=== PATIENT | male | born 1965 | race African-American/Black ===

== ENCOUNTER 2020-09-20 01:19 | Emergency (ER) | payer MEDICAID ==
[~2020-09-20] VITALS: Ht 185.4 cm; Wt 75.0 kg
[2020-09-20 02:15] VITALS: BP 145/77
[2020-09-20] MEDS ORDERED: IV NORMAL SALINE 1000ML BAG 1,000 ML IV ONE (02:30)
--- NOTE | 2020-09-20 02:51 | PHYS DOC ---
Past Medical History Past Medical History: Alcoholism, Diabetes-Type II Smoking Status: Current Every Day Smoker General Adult EDM: Chief Complaint: DIZZY/LIGHT HEADED HPI: HPI: Patient is a 54 year old male who is a chief complaint of dizziness. Patient had some dizziness 2 days ago and his caretakers were concerned and sent him in for evaluation. Patient denies any current dizziness. Patient states he has been out of his insulin for a week or so. Patient denies any nausea vomiting or recent illnesses. Patient does have a chronic cough due to smoking. Patient has had alcohol intake today and usually drinks 2 beers per day. Review of Systems: Review of Systems: Constitutional: Denies fever or chills. [] Eyes: Denies change in visual acuity. [] HENT: Denies nasal congestion or sore throat. [] Respiratory: Patient has a chronic cough but no shortness of breath. [] Cardiovascular: Denies chest pain or edema. [] GI: Denies abdominal pain, nausea, vomiting, bloody stools or diarrhea. [] : Denies dysuria. [] Musculoskeletal: Denies back pain or joint pain. [] Integument: Denies rash. [] Neurologic: Denies headache, focal weakness or sensory changes. [] Patient had dizziness 2 days ago but none today Endocrine: Denies polyuria or polydipsia. [] Lymphatic: Denies swollen glands. [] Psychiatric: Denies depression or anxiety. [] Heart Score: Risk Factors: Risk Factors: DM, Current or recent (<one month) smoker, HTN, HLP, family history of CAD, obesity. Risk Scores: Score 0 - 3: 2.5% MACE over next 6 weeks - Discharge Home Score 4 - 6: 20.3% MACE over next 6 weeks - Admit for Clinical Observation Score 7 - 10: 72.7% MACE over next 6 weeks - Early Invasive Strategies Current Medications: Current Medications Medications (Trade) Dose Ordered Sig/Archana Start Time Stop Time Status Last Admin Dose Admin Sodium Chloride 1,000 ml @ 1,000 mls/hr 1X ONCE 09/20/20 02:30 09/20/20 03:29 UNV Allergies: Allergies: Allergies Coded Allergies Type Severity Reaction Last Updated Verified citric acid Allergy Unknown 09/20/20 Yes Physical Exam: PE: Constitutional: Well developed, well nourished, no acute distress, non-toxic appearance. [] HENT: Normocephalic, atraumatic, bilateral external ears normal, no trismus nose normal. [] Eyes: PERRLA, EOMI, conjunctiva normal, no discharge. [] Horizontal nystagmus present Neck: Normal range of motion, no tenderness, supple, no stridor. [] Cardiovascular:Heart rate regular rhythm, peripheral pulses intact cap refill is brisk Lungs & Thorax: Bilateral breath sounds clear, no respiratory distress Abdomen: soft, no tenderness, no masses, no pulsatile masses. [] Skin: Warm, dry, no erythema, no rash. [] Back: No tenderness, no CVA tenderness. [] Extremities: No tenderness, no cyanosis, no clubbing, ROM intact, no edema. [] Neurologic: Alert and oriented X 3, normal motor function, normal sensory function, no focal deficits noted. [] Slurred speech Psychologic: Affect normal, judgement normal, mood normal. [] Current Patient Data: Labs: Laboratory Tests Test 09/20/20 02:15 Glucose (Fingerstick) 158 mg/dL (70-99) H EKG: EKG: EKG interpreted by me normal sinus rhythm with a rate of 72 normal axis normal intervals normal ST segments [] Radiology/Procedures: Radiology/Procedures: [][facility] [address] [place], [place] [id number] IMAGING REPORT Signed PATIENT: MELLISSA REYEZ ACCOUNT: [id number] : 1965 LOCATION: ER AGE: 54 SEX: M EXAM STATUS: REG ER ORD. PHYSICIAN: ANNALEE LATIF MD REASON: DIZZY PROCEDURE: PORTABLE CHEST 1V XR CHEST 1V 09/20/2020 2:12 AM INDICATION: Dizziness COMPARISON: None available TECHNIQUE: Portable frontal view of the chest is provided. FINDINGS: The cardiomediastinal silhouette is within normal limits. Lungs are clear. There are no significant pleural effusions. There is no pulmonary vascular congestion. No pneumothorax. No suspicious osseous abnormality. IMPRESSION: There is no acute cardiopulmonary process. Electronically signed by: Dixie Heller MD (09/20/2020 2:46 AM) [facility] DICTATED and SIGNED BY: DIXIE HELLER MD DATE: 09/20/20 [id number] [facility] [address] [place] [address] IMAGING REPORT Signed PATIENT: MELLISSA REYEZ ACCOUNT: [id number] : 1965 LOCATION: ER AGE: 54 SEX: M EXAM STATUS: REG ER ORD. PHYSICIAN: ANNALEE LATIF MD REASON: DIZZY PROCEDURE: CT HEAD WO CONTRAST PQRS Compliance Statement: One or more of the following individualized dose reduction techniques were utilized for this examination: 1. Automated exposure control 2. Adjustment of the mA and/or kV according to patient size 3. Use of iterative reconstruction technique CT head without contrast 09/20/2020 2:48 AM INDICATION: Dizzy COMPARISON: None available TECHNIQUE: Multiple axial CT images of the head were obtained from skull base through the vertex without intravenous contrast. FINDINGS: Head: Ventricles, sulci and basal cisterns are within normal limits. There is no hydrocephalus. Sabillon-white matter differentiation is normal. There is no acute intracranial hemorrhage. There is no mass, mass effect or midline shift. Posterior fossa is normal in appearance. There is minimal hypoattenuation is asymmetrically involving the left lateral thalamus. Visualized portions of the orbits are normal. Paranasal sinuses are well ae rated. Mastoid air cells are well aerated. Scalp and calvaria are normal. IMPRESSION: No acute intracranial hemorrhage. Hypoattenuation asymmetrically involving the left lateral thalamus could reflect sequela remote ischemic changes. There is persistent clinical concern, further evaluation with MRI brain without contrast could be of benefit. Electronically signed by: Dixie Heller MD (09/20/2020 3:15 AM) [facility] DICTATED and SIGNED BY: DIXIE HELLER MD DATE: 09/20/[id number] 0 Course & Med Decision Making: Course & Med Decision Making Pertinent Labs and Imaging studies reviewed. (See chart for details) [] Proximally 3:15 AM patient went to the nurse did not want to wait for his results and signed out AMA. Stephany Disclaimer: Stephany Disclaimer: This electronic medical record was generated, in whole or in part, using a voice recognition dictation system. Departure Departure Impression: Primary Impression: Dizziness Disposition: 07 AMA/ELOPED/LWBS Condition: STABLE Referrals: NO PCP (PCP) ANNALEE LATIF MD Sep 20, 2020 02:51
[2020-09-20 03:14] LABS: BASO % 1 % (0-3); EOS # 0.1 x10^3/uL (0.0-0.7); EOS % 3 % (0-3); HEMATOCRIT 37.6 % (39.0-53.0); HEMOGLOBIN 12.9 g/dL (13.0-17.5); LYMPH # 1.4 x10^3/uL (1.0-4.8); LYMPH % 45 % (24-48); MEAN CORPUSCULAR HEMOGLOBIN 34 pg (25-35); MEAN CORPUSCULAR HGB CONC 34 g/dL (31-37); MEAN CORPUSCULAR VOLUME 99 fL (79-100); MONO # 0.4 x10^3/uL (0.0-1.1); MONO % 13 % (0-9); NEUT # 1.3 x10^3/uL (1.8-7.7); NEUT % 39 % (31-73); PLATELET COUNT 155 x10^3/uL (140-400); RED CELL DISTRIBUTION WIDTH 13.2 % (11.5-14.5); WHITE BLOOD COUNT 3.2 x10^3/uL (4.0-11.0)
--- NOTE | 2020-09-20 03:17 | RAD ---
PQRS Compliance Statement: One or more of the following individualized dose reduction techniques were utilized for this examinat ion: 1. Automated exposure control 2. Adjustment of the mA and/or kV according to patient size 3. Use of iterative reconstruction technique CT head without contrast 09/20/2020 2:48 AM INDICATION: Dizzy COMPARISON: None available TECHNIQUE: Multiple axial CT images of the head were obtained from skull base through the vertex with out intravenous contrast. FINDINGS: Head: Ventricles, sulci and basal cisterns are within normal limits. There is no hydrocephalus. Sabillon-white matter differentiation is normal. There is no acute intracranial hemorrhage. There is no mass, mass e ffect or midline shift. Posterior fossa is normal in appearance. There is minimal hypoattenuation is asymmetrically involving the left lateral thalamus. Visualized portions of the orbits are normal. Paranasal sinuses are well aerated. Mastoid air cells a re well aerated. Scalp and calvaria are normal. IMPRESSION: No acute intracranial hemorrhage. Hypoattenuation asymmetrically involving the left lateral thalamus could reflect sequela remote ische renny changes. There is persistent clinical concern, further evaluation with MRI brain without contrast could be of benefit. Electronically signed by: Monique Gunderson MD (09/20/2020 3:15 AM) [facility]
[2020-09-20 03:23] LABS: CALCIUM 8.4 mg/dL (8.5-10.1); CREATININE 0.9 mg/dL (0.7-1.3); GFR 106.4; POTASSIUM 4.3 mmol/L (3.5-5.1)
[2020-09-20 03:29] LABS: ALBUMIN/GLOBULIN RATIO 0.9 (1.0-1.7); MAGNESIUM 2.1 mg/dL (1.8-2.4); TOTAL BILIRUBIN 0.2 mg/dL (0.2-1.0); TOTAL PROTEIN 6.5 g/dL (6.4-8.2)
--- NOTE | 2020-09-22 12:19 | EKG ---
[facility] [address] [place] [address] Test Date: 2020-09-20 Test Time: 02:34:59 Pat Name: MELLISSA REYEZ Department: Room: Gender: M [employer]er: : 1965 Requested By: ANNALEE LATIF Order Number: [id number] Reading MD: Measurements Intervals [place] Rate: 72 P: 54 AK: 160 QRS: 55 QRSD: 66 T: 51 QT: 420 QTc: 462 Interpretive Statements SINUS RHYTHM OTHERWISE NORMAL ECG RI6.01 No previous ECG available for comparison
== END 2020-09-20 03:15 | disposition left against medical advice (07) ==
LOC: ER 01:19
DX: R42 Dizziness and giddiness (principal); R05 Cough; F10.10 Alcohol abuse, uncomplicated; E11.9 Type 2 diabetes mellitus without complications; F17.200 Nicotine dependence, unspecified, uncomplicated; Z88.8 Allergy status to other drugs, medicaments and biological substances
CPT/HCPCS: 70450; 71045; 80053; 82962; 83690; 83735; 84484; 85025; 99285; G0480; 93005